=== PATIENT | female | born 1935 | race Caucasian/White ===

== ENCOUNTER → 2016-12-02 | Outpatient (CLI) | payer MEDICARE ==
[~2016-12-02] MED LIST: DENOSUMAB 60 MG/ML 1 ML SYRINGE SQ ONE
[2016-12-02 11:35] VITALS: BP 134/80; PULSE 62; RESP 16; TEMP 97.7
== END ==
LOC: PROCWHC3 10:49
PROVIDERS: ATTEND Family Medicine
DX: M81.0 Age-related osteoporosis without current pathological fracture (principal)
CPT/HCPCS: 96372; J0897

== ENCOUNTER → 2017-06-09 | Outpatient (CLI) | payer MEDICARE ==
[2017-06-09 11:33] VITALS: BP 163/77; PULSE 57; RESP 16; TEMP 97.7
== END | disposition home or self-care (01) ==
LOC: PROCWHC3 10:54
PROVIDERS: ATTEND Family Medicine
DX: M81.0 Age-related osteoporosis without current pathological fracture (principal)
CPT/HCPCS: 96372; J0897

== ENCOUNTER → 2017-12-08 | Outpatient (CLI) | payer MEDICARE ==
[2017-12-08 11:21] VITALS: BP 138/81; PULSE 57; RESP 16; TEMP 98.1
== END | disposition home or self-care (01) ==
LOC: PROCWHC3 10:47
PROVIDERS: ATTEND Family Medicine
DX: M81.0 Age-related osteoporosis without current pathological fracture (principal)
CPT/HCPCS: 96372; J0897

== ENCOUNTER → 2018-03-09 | Outpatient (CLI) | payer MEDICARE ==
--- NOTE | 2018-03-10 17:33 | MR ---
MR brain without contrast HISTORY: R 20.8 Multiplanar multisequence imaging through the brain No comparisons There is no restricted diffusion. Corpus callosum, pituitary, cervical medullary junction, cerebellop ontine angles are normal. There are normal vascular flow voids. There is no hemorrhage or hydrocephal us. Periventricular, deep white matter and subcortical confluent and scattered hyperintensities are n oted on inversion recovery T2-weighted sequences. Age-related atrophy is present. Orbits show symmetr ic appearance. Mucosal disease present within the maxillary sinuses. IMPRESSION: Age-related changes of atrophy and probable chronic small vessel ischemia.
== END | disposition home or self-care (01) ==
LOC: RADMRIMAIN 15:47
PROVIDERS: ATTEND Physician Assistant
DX: G31.1 Senile degeneration of brain, not elsewhere classified (principal)
CPT/HCPCS: 70551

== ENCOUNTER → 2018-07-02 | Day surgery (SDC) | payer MEDICARE ==
[2018-06-30 16:17] VITALS: BMI 37.5
[~2018-07-02] MED LIST changes: +BUPIVACAIN-EPI 0.5%-1:200,000 30 ML VIAL SQ ONE; -DENOSUMAB 60 MG/ML 1 ML SYRINGE SQ ONE; +DEXAMETHASONE SOD PHOSPHATE 10 MG/ML 1 ML VIAL IV ONE; +HYDROmorphone 0.5 MG/0.5 ML SYRINGE IVP PRN; +LACTATED RINGERS 1,000 ML IV ONE; +LACTATED RINGERS 1,000 ML IV SCH; +LIDOCAINE 1% 20 ML VIAL (10MG/ML) FOR IV START INTRADERMA ONE; +LIDOCAINE 2%-EPI 1:100,000 20 ML VIAL ONE; +MIDAZOLAM (PF) 2 MG/2 ML VIAL IV PRN; +MIDAZOLAM 2 MG/2 ML VIAL ONE; +ONDANSETRON 4 MG/2 ML VIAL IVP ONE; +PROPOFOL 10 MG/ML 20 ML VIAL IV ONE; +ROPIVACAINE 5 MG/ML 30 ML VIAL ONE; +ceFAZolin IN SWFI 2 GM/20 ML SYRINGE IVP ONE; +fentaNYL (PF) 50 MCG/ML 2 ML AMP IV ONE; +fentaNYL (PF) 50 MCG/ML 2 ML AMP ONE
[2018-07-02 10:27] VITALS: TEMP 98.7
--- NOTE | 2018-07-02 11:31 | P.ONQ ---
Anesthesiology Proc Note - PNB - Peripheral Nerve Block Performed Left Axillary Single Time Out Performed: Yes (1100) Procedure Start Time: 11:00 Procedure Stop Time: 11:10 Indication: Acute Post-Operative Pain, Dx/Pain Location (Left Wrist Pain), Requested by physician Catheter: None Needle Types: On-Q Needle Size: 50mm (2") Needle Gauge: 21 Technique: Ultrasound Injectate: Other (see comment) (20ml Ropivacaine +5 ml 2% lidocaine with 1:200, 000 epi) Blood Aspirated: No Pain Paresthesia on Injection Noted: No Resistance on Injection: Normal Events: Uneventful and Well Tolerated
[2018-07-02 15:00] VITALS: RESP 16
--- NOTE | 2018-07-02 15:00 | XR ---
EXAMINATION TYPE: XR wrist limited LT, FL guidance operating room DATE OF EXAM: 07/02/2018 CLINICAL HISTORY: Fluoroscopic guidance during an open reduction internal fixation of the left wrist TECHNIQUE: Fluoroscopy. COMPARISON: None. FINDINGS: Fluoroscopic guidance was provided during procedure performed by Dr. Hong. A total of 31 seconds of fluoroscopic time was utilized during the procedure and 5 spot images was acquired d uring open reduction internal fixation of the left wrist. IMPRESSION: As Above.
[2018-07-02 15:50] VITALS: BP 107/69; PULSE 72
--- NOTE | 2018-07-04 14:28 | P.OP ---
Date of Procedure: 07/02/18 Preoperative Diagnosis: Closed, displaced intra-articular left distal radius fracture with ulnar styloid base fracture Postoperative Diagnosis: Closed, displaced intra-articular left distal radius fracture with ulnar styloid base fracture Procedure(s) Performed: Open reduction and internal fixation - intra-articular left distal radius fracture (3+ fragments) Implants: [employer] AcuLoc2 VDR, left standard Anesthesia: MAC, regional Surgeon: Demetrio Hong [employer] Supervisor #1: Lakshmi Moran Estimated Blood Loss (ml): 5 Pathology: none sent Condition: stable Disposition: PACU Indications for Procedure: The patient is an 82-year-old female who experienced a mechanical fall which resulted in a displaced left distal radius fracture. Surgical treatment was recommended. Risks and benefits were discussed in the office and reviewed in preop. Questions were invited and answered. The patient expressed understanding and wished to proceed with surgery. Consent forms were signed. The operative site was confirmed and marked. Description of Procedure: The patient was administered a regional nerve block by the anesthesia team then brought to the operating suite. The patient was positioned supine with the operative limb on an arm board. All bony prominences were well padded. Anesthesia was administered uneventfully. Prophylactic IV antibiotics were administered. A tourniquet was placed on the operative arm which was then prepped and draped in standard, sterile fashion. A timeout was performed which confirmed the patient, the operative side, the site and the procedure to be performed. All team members expressed agreement. The limb was exsanguinated with an Esmarch and the tourniquet was inflated. A standard volar FCR approach was utilized. The skin was incised sharply, curving gently at volar wrist crease. The subcutaneous tissue were spread, coagulating superficial vessels as needed. The FCR sheath was incised and the tendon was mobilized. Blunt dissection was used and the pronator quadratus was identified and found to be partially disrupted distally. This was sharply extended along its radial border and & elevated ulnarly. The fracture site was identified. There was a large radial styloid fragment was identified, with a fracture line extending obliquely across the metaphysis. A second split extended into the radiocarpal joint. A coronal component involving the dorsal joint surface was not grossly visible through the volar exposure. Manual reduction was performed but adequate spiritism of radial height, inclination and volar tilt was not achieved. The brachioadialis tendon was identified and released to alleviate the deforming force, taking care to protect the first dorsal compartment tendons. A Dyer elevator was used to gently release the fracture callous and impacted dorsal fragments. The fracture site was carefully opened. A curette was used to remove hematoma and fibrous tissue. The reduction maneuver was repeated and satisfactory initial alignment was confirmed with fluoroscopy. A 0.062 K wire was inserted percutaneously into the radial styloid and advanced across the metaphysis for provisional reduction. The plate was selected, based on the patients anatomy and fracture pattern, and was positioned on the volar radius. It was provisionally pinned in place with K- wires and its position was confirmed on imaging. A cortical screw was drilled, measured and inserted into the oblong hole of the shaft. Residual step-off was seen in the ulnar aspect of the scaphoid fossa. The K wire across the radial styloid was backed up and used as a joystick. Ligamentotaxis with ulnar deviation was used to improve the alignment. The fracture fragment was manipulated with the K wire until the step-off was corrected and the wire was readvanced into the metaphysis. Locking screws were then drilled, measured and inserted distally, confirming length and trajectory with fluoroscopy. The provisional K-wires were removed. An additional cortical screw was drilled and inserted to further secure the plate to the metaphysis. The percutaneous K wire was removed. Final x-rays were obtained which revealed satisfactory reduction of the fracture. A 20-degree inclined lateral view was obtained to confirm extra-articular screw placement. The wrist was then ranged under live fluoroscopy - no motion of the fracture fragments or fixation construct was appreciated. The tourniquet was released and hemostasis was obtained with electrocautery. The wound was thoroughly irrigated with normal saline. The pronator was loosely repaired with interrupted 2-0 Vicryl sutures. The subcutaneous tissues were reapproximated with interrupted 3-0 Vicryl suture. The incision was closed with interrupted 4-0 nylon suture. Marcaine with epinephrine was injected into the perioperative subcutaneous tissues for adjuctive postoperative pain control and hemostasis. A sterile dressing was applied followed by a resting volar splint. All sponge and needle counts were correct at the end of the case. The patient tolerated the procedure well and was taken to the recovery room in stable condition.
== END | disposition home or self-care (01) ==
LOC: OR 09:41
PROVIDERS: ATTEND Orthopaedic Surgery
DX: S52.572A Other intraarticular fracture of lower end of left radius, initial encounter for closed fracture (principal); S52.612A Displaced fracture of left ulna styloid process, initial encounter for closed fracture; W01.0XXA Fall on same level from slipping, tripping and stumbling without subsequent striking against object, initial encounter; Y92.008 Other place in unspecified non-institutional (private) residence as the place of occurrence of the external cause; E78.5 Hyperlipidemia, unspecified; E11.41 Type 2 diabetes mellitus with diabetic mononeuropathy; G58.9 Mononeuropathy, unspecified; I49.9 Cardiac arrhythmia, unspecified; I10 Essential (primary) hypertension; F32.9 Major depressive disorder, single episode, unspecified; R26.81 Unsteadiness on feet; E78.00 Pure hypercholesterolemia, unspecified; E78.9 Disorder of lipoprotein metabolism, unspecified; I88.9 Nonspecific lymphadenitis, unspecified; M19.90 Unspecified osteoarthritis, unspecified site; M76.9 Unspecified enthesopathy, lower limb, excluding foot; M93.90 Osteochondropathy, unspecified of unspecified site; M81.0 Age-related osteoporosis without current pathological fracture; E89.0 Postprocedural hypothyroidism; K21.9 Gastro-esophageal reflux disease without esophagitis; R31.9 Hematuria, unspecified; R35.0 Frequency of micturition; R33.9 Retention of urine, unspecified; R32 Unspecified urinary incontinence; Z79.82 Long term (current) use of aspirin; Z79.1 Long term (current) use of non-steroidal anti-inflammatories (NSAID); Z79.891 Long term (current) use of opiate analgesic; Z79.899 Other long term (current) drug therapy; Z90.710 Acquired absence of both cervix and uterus; Z87.891 Personal history of nicotine dependence; Z88.2 Allergy status to sulfonamides
CPT/HCPCS: 25609; 25652; 64417; 73100; C1713; J2250 ×2; J1100; J2405; J3010; J2795; J2704; J0690; 64415

== ENCOUNTER → 2019-11-25 | Outpatient (CLI) | payer MEDICARE ==
[2019-11-25 18:32] LABS: African American GFR (CKD) >90 (>60 ml/min/1.73 sqM); Blood Urea Nitrogen 16 mg/dL (7-17); Non-African American GFR(CKD) 78 (>60 ml/min/1.73 sqM)
--- NOTE | 2019-11-26 07:52 | CT ---
EXAMINATION TYPE: CT abdomen pelvis w con DATE OF EXAM: 11/25/2019 COMPARISON: None HISTORY: Per patient Abnormal MR CT DLP: 1408.6 mGycm CONTRAST: CT scan of the abdomen and pelvis is performed with Oral Contrast and with IV Contrast, patient injec princess with 100 mL of Isovue 300. FINDINGS: LUNG BASES-: No visible nodule. No infiltrate. LIVER/GB: No calcified gallstones. No space occupying hepatic lesion. Biliary tree is of normal ca liber. PANCREAS: No inflammation. No distinct mass. SPLEEN: No splenic enlargement. No lesion seen. ADRENALS: No nodule. No thickening. KIDNEYS/BLADDER: No hydronephrosis. No nephrolithiasis. Simple cyst right kidney measuring 4.9 cm a t its lower pole. Urinary bladder grossly unremarkable. BOWEL: Normal appendix. Normal bowel caliber. No inflammation. Sigmoid diverticulosis without diver ticulitis. Small fixed hiatal hernia. GENITAL ORGANS: No gross abnormality. LYMPH NODES: No greater than 1cm abdominal or pelvic lymph nodes are appreciated. AORTA: No significant abnormality. OSSEOUS STRUCTURES: No significant abnormality is seen. OTHER: There is a cystic mass with Hounsfield unit measurement of approximately 20 adjacent to the in ferior vena cava at the level of the kidneys which measures 4.3 x 4.3 x 5.7 cm. Mass effect is impart ed upon the inferior vena cava. This mass is of uncertain etiology and further evaluation with MRI is advised. No additional retroperitoneal masses are seen. IMPRESSION: 1. There is a cystic mass with Hounsfield unit measurement of approximately 20 adjacent to the inferi or vena cava at the level of the kidneys which measures 4.3 x 4.3 x 5.7 cm. Mass effect is imparted u milla the inferior vena cava. This mass is of uncertain etiology and further evaluation with MRI is adv ised. No additional retroperitoneal masses are seen.
== END | disposition home or self-care (01) ==
LOC: RADCTMAIN 17:19
PROVIDERS: ATTEND Family Medicine
DX: N28.1 Cyst of kidney, acquired (principal); R19.00 Intra-abdominal and pelvic swelling, mass and lump, unspecified site
CPT/HCPCS: 82565; 84520; 74177; 36415; Q9967